=== PATIENT | male | born 1935 | race Caucasian/White ===

== ENCOUNTER 2021-10-29 09:48 | Emergency (ER) | payer OTHER, SELFPAY ==
[2021-10-29 09:49] VITALS: BP 144/76; PULSE 65; RESP 18; TEMP 37.1; O2SAT 96; BMI 22.0
[2021-10-29 09:52] VITALS: BP 144/76; PULSE 65; RESP 18; TEMP 37.1; O2SAT 96
--- NOTE | 2021-10-29 11:12 | EKG12_ITS ---
Test Reason : Blood Pressure : / mmHG Vent. Rate : 068 BPM Atrial Rate : 068 BPM P-R Int : 242 ms QRS Dur : 088 ms QT Int : 418 ms P-R-T Axes : -03 -44 012 degrees QTc Int : 444 ms Sinus rhythm with 1st degree A-V block Left axis deviation Poor R wave progression Abnormal ECG Confirmed by TREMAYNE DANIELLE, SCOTT ([id number]), sizing sponger CARMEN RUST ([id number]) on 10/31/2021 8:18:43 AM Referred By: RAYO Confirmed By:SCOTT CASPER MD
--- NOTE | 2021-10-29 11:14 | EX.ED.DYSGE1 ---
HPI History of Present Illness Chief Complaint: General Illness Informant: patient Onset/Context/Timing Onset: Weeks (1) Context: Gradual Onset Timing: Continuous Quality: cough, weak Location: all over Current Severity: Moderate Maximum Severity: Moderate Worsened by: nothing Relieved by: nothing Associated Symptoms Associated Symptoms: fevers/chills subjective, myalgias, n/v/d, mild diffuse chest discomfort Associated Symptoms ED: cough Narrative Narrative: 1 week of illness, cough but not dyspneic. no known sick contacts. not vaccinated against covid. n/v/d w/o abd pain, feels weak but able to walk and get around well. [facility] Medical History Anxiety Prostate disorder Allergy/AdvReac Type Severity Reaction Status Date / Time No Known Allergies Allergy Verified 10/29/21 09:52 Social History Smoking Status: Never smoker ROS ROS ED Constitutional Constitutional ED: Reports body ache(s), chills, fatigue, fever(s), headache(s) and malaise Eyes Eyes: Denies change in vision or diplopia ENT ENT ED: Denies rhinorrhea or sore throat Cardiovascular Cardiovascular: Reports as per HPI and chest pain; Denies palpitations Respiratory/Chest Respiratory/Chest: Reports cough; Denies dyspnea or dyspnea on exertion Gastrointestinal Gastrointestinal: Reports diarrhea, nausea and vomiting; Denies abdominal pain Genitourinary Genitourinary ED: Denies dysuria or hematuria Musculoskeletal Musculoskeletal: Denies back pain or neck pain Integumentary Denies abscess or rash Neurologic Neurologic: Reports headache(s); Denies paresthesias or weakness Psychiatric Psychiatric: Denies anxiety or suicidal thoughts EXAM Physical Exam Const Vital Signs: 10/29/21 09:49 10/29/21 09:52 10/29/21 09:53 Temperature 98.7 F 98.7 F Temperature Source Oral Oral Pulse Rate 65 65 Respiratory Rate 18 18 Respiratory Pattern Normal Blood Pressure 144/76 H 144/76 H Blood Pressure Mean 98 98 Pulse Ox 96 96 Oxygen Delivery Method Room Air Room Air 10/29/21 11:41 Temperature 97.8 F Temperature Source Oral Pulse Rate 61 Respiratory Rate 18 Respiratory Pattern Blood Pressure 146/67 H Blood Pressure Mean 93 Pulse Ox 96 Oxygen Delivery Method Room Air Positive well nourished and well developed Constitutional Narrative: Well-appearing, no distress General Appearance ED: well developed and NAD HEENT Reports moist mucous membranes normocephalic and atraumatic Eyes PERRL and EOMs intact bilaterally Neck full ROM and supple Resp normal respiratory effort and clear to auscultation bilaterally Cardio regular rate, regular rhythm and no murmurs Rate: Negative for tachycardic GI non-tender and non-distended Auscultation: normoactive bowel sounds Palpation: soft Back/Spine no CVA tenderness General Back: other FROM Extremity normal to inspection and no calf tenderness General Extremety ED: Negative for edema, pulses abnormal or tenderness General Extremity: Negative for edema or pulses abnormal Neuro oriented x3, CN's II-XII intact bilaterally and no sensory deficits noted Sensorium / Orientation: awake and alert Motor Exam: strength 5/5 throughout Skin no rashes or lesions noted and no wounds MDM MDM MDM Narrative Medical decision making narrative: Rapid Covid swab positive, he does have some very mild evidence of Covid pneumonitis but his oxygenation is excellent and the rest of his labs are unremarkable. Will discharge patient home with precautions, referred to the monoclonal antibody infusion clinic, given information concerning this. Lab Data Attestation: I reviewed the patient's lab results. Labs: Laboratory Results - last 24 hr 10/29/21 10/29/21 10:05 10:05 WBC 2.6 L RBC 4.85 Hgb 14.5 Hct 43.7 MCV 90.1 MCH 29.9 MCHC 33.2 RDW Std Deviation 45.7 H RDW Coeff of Ming 13.7 Plt Count 119 L MPV 9.7 Immature Gran % (Auto) 0.400 Neut % (Auto) 66.0 Lymph % (Auto) 23.7 [place] % (Auto) 9.9 Eos % (Auto) 0.0 Baso % (Auto) 0.0 Absolute Neuts (auto) 1.7 L Absolute Lymphs (auto) 0.62 L Nucleated RBC % 0 Sodium 135 L Potassium 4.0 Chloride 102 Carbon Dioxide 26.0 Anion Gap 7 BUN 20 H Creatinine 1.09 Estim Creat Clear Calc 44.71 Est GFR (MDRD) Af Amer 83 Est GFR (MDRD) Non-Af 68 BUN/Creatinine Ratio 18.3 Glucose 101 Calcium 8.7 Troponin I High Sens 19 Radiography Diagnostic Testing: Clinical Impression(s) from Imaging Studies Chest X-Ray 10/29/21 11:43 IMPRESSION: A few scattered bilateral pulmonary infiltrates which are nonspecific but can be associated with viral pneumonia. Electronically Signed: Mir Herrmann MD ([place]) at 12:00 EST , Service support , EKG Initial EKG: Attestation: I personally reviewed and interpreted this EKG as follows: Interpretation: Sinus Rhythm, No Acute Injury Pattern and AV Block (1st deg) Discharge Plan Triage Chief Complaint: General Illness ED Provider: Serjio Oneill Dx/Rx/DC Orders Clinical Impression: Pneumonia due to COVID-19 virus Instructions: Coronavirus Disease 2019 (COVID-19): Caring for Yourself or Others, ED - COVID Monoclonal AB Infusion ... Other Ambulatory Orders: COVID Outpatient Monoclonal Antibody Referral (Routine) Timeframe: 1 Day Facility: [facility] - Location: [facility] Ordered By: Dr. Serjio Oneill Primary Care Provider: Rios Fraser Referrals: Rios Fraser MD [Primary Care Provider] - As Needed Activity Restrictions/Additional Instructions: Try to get a home portable pulse oximeter and closely watch your oxygen levels periodically. If you stay below 90% for more than a minute or so, and/or you are feeling like your breathing is getting worse, return to the emergency department for further evaluation. You are a candidate for monoclonal antibody infusion therapy, see the attached information. You are referred to the clinic, they will contact you regarding therapy. Disposition Disposition: Home, Self Care
[2021-10-29] MEDS: 0.9% Normal Saline 1,000 ML 250 ML IV (11:40)
[2021-10-29] MEDS: Ondansetron 4 MG/2 ML Vial IV (11:40)
[2021-10-29 11:41] VITALS: BP 146/67; PULSE 61; RESP 18; TEMP 36.6; O2SAT 96
--- NOTE | 2021-10-29 11:43 | RAD_ITS ---
STUDY: X-RAY CHEST REASON FOR EXAM: Male, 86 years old. FEVER, COUGH, BODY ACHES, SORE THROAT TECHNIQUE: AP COMPARISON: None. FINDINGS: EKG leads project over the chest. There are a few scattered groundglass and reticular opacities in the bilateral midlung zones and left lung base. There is no demonstrated pleural abnormality. Normal size heart. Normal mediastinum and anne marie. Normal visualized pulmonary arteries. Normal visualized aortic arch and descending thoracic aorta. Normal visualized thoracic spine. Normal visualized ribs, clavicles, and shoulders. There is no demonstrated abnormality of the visualized soft tissue structures of the upper abdomen. RAD/Chest 1 View (Portable) IMPRESSION: A few scattered bilateral pulmonary infiltrates which are nonspecific but can be associated with viral pneumonia. Electronically Signed: Mir Herrmann MD ([place]) at 12:00 EST , Service support ,
[2021-10-29 11:51] LABS: Absolute Lymphocyte Count 0.62 X10^3/uL (0.83-4.51); Absolute Neutrophil Count 1.7 X10^3/uL (2.0-7.7); Hematocrit 43.7 % (40-54); Hemoglobin 14.5 g/dL (13.0-16.5); Lymphocyte # 0.62 X10^3/ul (0.83-4.51); Lymphocyte % 23.7 % (19-41); Mean Corp Hgb Conc 33.2 g/dL (32-36); Mean Corpuscular Hgb 29.9 pg (27.0-32.0); Mean Corpuscular Volume 90.1 fL (80-94); Mean Platelet Vol. 9.7 fl (6.2-12.0); Monocyte# 0.26 X10^3/uL; Monocyte% 9.9 % (0-10); NRBC Flagged by Analyzer 0 % (0-5); Neutrophil # 1.73 X10^3/uL (2.7-7.7); Platelet Count 119 K/mm3 (150-450); RBC Distribution Width CV 13.7 % (11.6-14.6); RBC Distribution Width SD 45.7 fl (35.1-43.9); Red Blood Count 4.85 M/mm3 (4.6-6.2); White Blood Count 2.6 K/mm3 (4.4-11.0)
[2021-10-29 12:04] LABS: Anion Gap 7 (5-15); BUN 20 mg/dL (7-18); BUN/Creat Ratio 18.3 RATIO (10-20); Calcium,Total 8.7 mg/dL (8.5-10.1); Chloride 102 mmol/L (98-107); Creatinine, Serum 1.09 mg/dL (0.70-1.30); EST Glomerular Filtration Rate 68 mL/min (>60); Est Glom Filt Rate - Afr Amer 83 mL/min (>60); Estimated Creatinine Clearance 44.71 ml/min; Glucose 101 mg/dL (74-106); Sodium Level 135 mmol/L (136-145); Troponin-I HS 19 pg/mL (3.0-78.0)
[2021-10-29 13:13] VITALS: BP 138/74; PULSE 61; RESP 16; O2SAT 96
== END 2021-10-29 13:15 | disposition home or self-care (01) ==
PROVIDERS: Emergency Provider Emergency Medicine; PCP Family Medicine
DX: U07.1 COVID-19 (principal); J12.82 Pneumonia due to coronavirus disease 2019; I44.0 Atrioventricular block, first degree
CPT/HCPCS: 71045; 80048; 84484; 85025; 87426; 93005; 96361; 96374; 99285; J7030; J2405